=== PATIENT | female | born 1985 | race Caucasian/White ===

== ENCOUNTER 2016-10-14 10:45 | Emergency (ER) | payer OTHER ==
--- NOTE | 2016-10-15 23:47 | ER ---
ADMIT: 10/14/2016 RM/LOC: ER [facility] MR#: [id number] [address] [id number] [place], SEPTEMBER [address] [place] [address] Emergency Room Report SEX: F AGE: 31 : 1985 DATE: 10/14/2016 CHIEF COMPLAINT: Injury to right hand. HISTORY OF PRESENT ILLNESS: This is a pleasant 31-year-old female, who presents to the ER after injury to her hands prior to arrival. The patient states that she was carrying a crock pot when she dropped it and sustained cuts to her right hand. She is in mild amount of pain. States she is concerned by the amount of bleeding coming from the hand. She does have a linear laceration to the dorsal right hand as well as the distal 4th finger on the right hand. COURSE IN THE EMERGENCY ROOM: The patient was seen and examined. She is in no acute distress. She is alert. She does have a linear laceration to the dorsal aspect of the right hand. It is clean. No obvious foreign body. She also has a laceration to the distal left finger, it is rather superficial, extending just into the epidermis. I did repair these with some Dermabond. Wound edges well approximated. IMPRESSION: Lacerations, right hand. DISPOSITION: Patient was discharged. To keep the hand clean and dry. Allow the glue to fall off on its own. Monitor for any signs or symptoms of infection. Follow up with Dr. Tubbs as needed. Questions sought and answered to best of my ability and to the patient's satisfaction. She is to use Tylenol or ibuprofen as needed for pain. Apply ice for pain and swelling. Discharged in stable condition. RYANNE Black / Leif Ba MD / ramos JOB #: [id number] CC: Leif Ba MD, Attending Physician Fatou Tubbs MD, Family Physician
== END 2016-10-14 11:28 | disposition home or self-care (01) ==
LOC: ER 10:45
PROC: 0HQFXZZ Repair Right Hand Skin, External Approach (ICD-10-PCS; principal; 2016-10-14)
DX: S61.411A Laceration without foreign body of right hand, initial encounter (principal); Z88.8 Allergy status to other drugs, medicaments and biological substances; Z79.899 Other long term (current) drug therapy; W45.8XXA Other foreign body or object entering through skin, initial encounter; Y92.009 Unspecified place in unspecified non-institutional (private) residence as the place of occurrence of the external cause